=== PATIENT | female | born 1985 | race Caucasian/White ===

== ENCOUNTER 2016-05-27 09:02 | Emergency (ER) | payer OTHER ==
--- NOTE | 2016-05-27 11:21 | ED ORDER SUMMARY ---
..... Patient: PEÑA SCHROEDER OrderSheet [facility] VisitID: [id number] [place] [address] 31y, F Registration Date/Time: 05/27/2016 ORDER SHEET Weight: 94.3 kg (stated) Allergies: Penicillin GENERAL ORDERS: US Pelvic Complete w Transvag Urgent (:05/27/[address]) (Ack 9:59 RKgricelda) (10:06 LWhalen R.N.) CBC w Diff Urgent (:05/27/[address]) (Ack 9:59 RKgricelda) (10:06 LWhalen R.N.) UA-Culture if indicated Urgent (05/27/[address]) (Ack 9:59 RKgricelda) (10:06 LWhalen R.N.) Urine Urgent (:05/27/[address]) (Ack 9:59 Xavier) (10:06 LWhalen R.N.) MEDICATION ORDERS: IV FLUIDS: IV NS : initial bolus 500 mL (1000 mL/hr), then 500 mL/hr for 2h (NOW); Routine (:43 05/27/[address]) (10:05 LWhalen R.N.) ORDER SHEET NOTES: [Electronically signed by Brett Loera MD (11:19 05/27/2016)] [Electronically signed by Susie Mcgregor R.N. (19:11 05/27/2016)] [Electronically locked/signed by Susie Mcgregor R.N. (19:11 05/27/2016)]
--- NOTE | 2016-05-27 11:21 | ED CLINICAL REPORT ---
Clinical Report - Physicians/Mid Levels [facility] [address] [place] [address] 05/27/2016 9:11 Patient: PEÑA SCHROEDER Time Seen: 09:36 May 27 2016. Arrived- By private vehicle. Historian- patient. CPT: ER phys charges level 4 (#[id number]). HISTORY OF PRESENT ILLNESS Chief Complaint: VAGINAL BLEEDING. 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 The symptoms are described as moderate. Modifying factors. Not worsened by anything. Not relieved by anything. The patient has had abnormal bleeding described as heavier than normal period 2 tampons per hour with clots. No control. She is not postmenopausal. No abdominal pain, pelvic pain, vaginal pain, vaginal discharge or pain with urination. No urinary frequency, urgency of urination or hematuria. Not sexually active. Does not use control measures. Denies current . Similar symptoms previously: Milder. Seen in the office. Diagnosis: (irregular menses.). Recent medical care: Not recently seen/assessed. REVIEW OF SYSTEMS No nausea, vomiting, diarrhea, sore throat or cough. No difficulty breathing, chest pain, skin rash, enlarged lymph nodes or joint pain. All systems otherwise negative, except as recorded above. PAST HISTORY ( Prior sexually transmitted disease history: herpes. No history of diabetes mellitus or hypertension. No history of pelvic inflammatory disease or endometriosis. ( no control +sexually active). ADDITIONAL SURGERIES: [place] teeth .). Medications: Ambien Oral. FLUoxetine HCl Oral. Allergies: Penicillin. SOCIAL HISTORY Light tobacco smoker (cigarette)- less than 1/2 a pack per day. Alcohol use. No drug use. ADDITIONAL NOTES The nursing notes have been reviewed. PHYSICAL EXAM Vital Signs: 05/27/2016 09:20 BP: 131/90. HR: 76. RR: 18. O2 saturation: 100%. Temp: 98.4 F. Appearance: Alert. HEENT: Normal external inspection. Eyes: No pale conjunctivae. ENT: Pharynx normal. Neck: Neck supple. CVS: Heart sounds normal. There is no decreased capillary refill. Respiratory: No respiratory distress. Breath sounds normal. Abdomen: Soft and nontender. Bowel sounds normal. : External inspection normal. Slight vaginal bleeding, consisting of bright red blood, and dark blood, via the cervical os. No clots associated with vaginal bleeding. No vaginal bleeding from a cervical lesion or vaginal laceration. No vaginal discharge. Bimanual exam normal. Skin: Skin warm. Normal skin color. No rash. Extremities: Extremities nontender. Neuro: Oriented X 3. Mood/affect normal. LABS, X-RAYS, AND EKG Pelvic Sonogram: Mild endometrial wall thickening is present (16.5 mm). No intrauterine , free fluid, adnexal mass or ovarian cyst. Study type: bedside abdominal and transvaginal evaluation. The study was independently viewed by me and interpreted contemporaneously by me. Laboratory Tests: UA-Culture if indicated: (ANJANA: 05/27/2016 09:47) ( MsgRcvd 05/27/2016 10:01) Final results Test Result Flag Units (Reference) URINE COLOR YELLOW URINE APPEARANCE SL CLOUDY URINE GLUCOSE NEGATIVE (NEGATIVE) URINE BILIRUBIN NEGATIVE (NEGATIVE) URINE KETONE NEGATIVE (NEGATIVE) URINE SPECIFIC GRAVITY 1.015 (1.010-1.030) URINE PH 6.0 (5.0-8.0) URINE PROTEIN NEGATIVE (NEGATIVE) URINE UROBILINOGEN 0.2 EU/dL (0.2-1.0) URINE NITRITE NEGATIVE (NEGATIVE) URINE BLOOD 3+ (NEGATIVE) URINE LEUK ESTERASE NEGATIVE (NEGATIVE) URINE RBC 50-75 rbc/hpf (0-1) URINE WBC NONE SEEN wbc/hpf (0-1) URINE EPITHELIAL CELLS 0-1 EPI/hpf (0-5) URINE BACTERIA TRACE (<1+) (NONE SEEN) URINE COMMENT CULT NOT INDICATED URINE CULTURES ARE SET-UP BASED ON THE FOLLOWING CRITERIA:POSITIVE NITRITEPOSITIVE LEUKOCYTE ESTERASEGREATER THAN 10 WHITE BLOOD CELLSMODERATE (2+) OR GREATER BACTERIA Urine: (ANJANA: 05/27/2016 09:47) ( PrgRcvd 05/27/2016 09:55) Final results Test Result Flag Units (Reference) URINE NEGATIVE CBC w Diff: (ANJANA: 05/27/2016 09:50) ( [facility] 05/27/2016 10:06) Final results Test Result Flag Units (Reference) WHITE BLOOD COUNT 8.3 K/uL (4.5-11.5) RED BLOOD COUNT 4.40 M/uL (4.00-5.20) HEMOGLOBIN 11.8 L gm/dL (12.0-16.0) HEMATOCRIT 35.3 L % (36.0-46.0) MEAN CELL VOLUME 80 fL (80-100) MEAN CORPUSCULAR HGB 27 pg (26-34) MEAN CORPUSCULAR HGB CONC 33 g/dL (31-37) RED CELL DISTRIBUTION WIDTH 14.4 % (11.6-14.8) PLATELET COUNT 248 K/uL (150-400) NEUTROPHIL % 72.6 % (50-75) LYMPH % 18.6 L % (25-40) MONO % 7.5 % (3-14) EOSINOPHIL % 0.7 % (0-4) BASOPHIL % 0.6 % (0-2) . PROGRESS AND PROCEDURES Course of Care: IV NS the patient already has follow-up with gynecology scheduled via her PCP. Patient/family counseled. Disposition: Discharged. Condition: stable. CLINICAL IMPRESSION Moderate pre-menopausal dysfunctional uterine bleeding. INSTRUCTIONS No sexual contact until symptoms resolve. Warnings: Further evaluation is necessary. GENERAL WARNINGS: Return or contact your physician immediately if your condition worsens or changes unexpectedly, if not improving as expected, or if other problems arise. Your Current Medications: CONTINUE TAKING THE FOLLOWING MEDICATIONS: Ambien Oral. FLUoxetine HCl Oral. Prescription Medications: Ovcon 35 take 2 pills a day for 5 days # 1 pack. 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 Call for an appointment. Understanding of the discharge instructions verbalized by patient. (Electronically signed by Brett Loera MD 05/27/2016 11:19)
--- NOTE | 2016-05-27 11:21 | ED CLINICAL REPORT ---
Clinical Report - Physicians/Mid Levels [facility] [address] [place] [address] 05/27/2016 9:11 Patient: PEÑA SCHROEDER Time Seen: 09:36 May 27 2016. Arrived- By private vehicle. Historian- patient. CPT: ER phys charges level 4 (#[id number]). HISTORY OF PRESENT ILLNESS Chief Complaint: VAGINAL BLEEDING. 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 The symptoms are described as moderate. Modifying factors. Not worsened by anything. Not relieved by anything. The patient has had abnormal bleeding described as heavier than normal period 2 tampons per hour with clots. No control. She is not postmenopausal. No abdominal pain, pelvic pain, vaginal pain, vaginal discharge or pain with urination. No urinary frequency, urgency of urination or hematuria. Not sexually active. Does not use control measures. Denies current . Similar symptoms previously: Milder. Seen in the office. Diagnosis: (irregular menses.). Recent medical care: Not recently seen/assessed. REVIEW OF SYSTEMS No nausea, vomiting, diarrhea, sore throat or cough. No difficulty breathing, chest pain, skin rash, enlarged lymph nodes or joint pain. All systems otherwise negative, except as recorded above. PAST HISTORY ( Prior sexually transmitted disease history: herpes. No history of diabetes mellitus or hypertension. No history of pelvic inflammatory disease or endometriosis. ( no control +sexually active). ADDITIONAL SURGERIES: [place] teeth .). Medications: Ambien Oral. FLUoxetine HCl Oral. Allergies: Penicillin. SOCIAL HISTORY Light tobacco smoker (cigarette)- less than 1/2 a pack per day. Alcohol use. No drug use. ADDITIONAL NOTES The nursing notes have been reviewed. PHYSICAL EXAM Vital Signs: 05/27/2016 09:20 BP: 131/90. HR: 76. RR: 18. O2 saturation: 100%. Temp: 98.4 F. Appearance: Alert. HEENT: Normal external inspection. Eyes: No pale conjunctivae. ENT: Pharynx normal. Neck: Neck supple. CVS: Heart sounds normal. There is no decreased capillary refill. Respiratory: No respiratory distress. Breath sounds normal. Abdomen: Soft and nontender. Bowel sounds normal. : External inspection normal. Slight vaginal bleeding, consisting of bright red blood, and dark blood, via the cervical os. No clots associated with vaginal bleeding. No vaginal bleeding from a cervical lesion or vaginal laceration. No vaginal discharge. Bimanual exam normal. Skin: Skin warm. Normal skin color. No rash. Extremities: Extremities nontender. Neuro: Oriented X 3. Mood/affect normal. LABS, X-RAYS, AND EKG Pelvic Sonogram: Mild endometrial wall thickening is present (16.5 mm). No intrauterine , free fluid, adnexal mass or ovarian cyst. Study type: bedside abdominal and transvaginal evaluation. The study was independently viewed by me and interpreted contemporaneously by me. Laboratory Tests: UA-Culture if indicated: (ANJANA: 05/27/2016 09:47) ( MsgRcvd 05/27/2016 10:01) Final results Test Result Flag Units (Reference) URINE COLOR YELLOW URINE APPEARANCE SL CLOUDY URINE GLUCOSE NEGATIVE (NEGATIVE) URINE BILIRUBIN NEGATIVE (NEGATIVE) URINE KETONE NEGATIVE (NEGATIVE) URINE SPECIFIC GRAVITY 1.015 (1.010-1.030) URINE PH 6.0 (5.0-8.0) URINE PROTEIN NEGATIVE (NEGATIVE) URINE UROBILINOGEN 0.2 EU/dL (0.2-1.0) URINE NITRITE NEGATIVE (NEGATIVE) URINE BLOOD 3+ (NEGATIVE) URINE LEUK ESTERASE NEGATIVE (NEGATIVE) URINE RBC 50-75 rbc/hpf (0-1) URINE WBC NONE SEEN wbc/hpf (0-1) URINE EPITHELIAL CELLS 0-1 EPI/hpf (0-5) URINE BACTERIA TRACE (<1+) (NONE SEEN) URINE COMMENT CULT NOT INDICATED URINE CULTURES ARE SET-UP BASED ON THE FOLLOWING CRITERIA:POSITIVE NITRITEPOSITIVE LEUKOCYTE ESTERASEGREATER THAN 10 WHITE BLOOD CELLSMODERATE (2+) OR GREATER BACTERIA Urine: (ANJANA: 05/27/2016 09:47) ( KsgRcvd 05/27/2016 09:55) Final results Test Result Flag Units (Reference) URINE NEGATIVE CBC w Diff: (ANJANA: 05/27/2016 09:50) ( [facility] 05/27/2016 10:06) Final results Test Result Flag Units (Reference) WHITE BLOOD COUNT 8.3 K/uL (4.5-11.5) RED BLOOD COUNT 4.40 M/uL (4.00-5.20) HEMOGLOBIN 11.8 L gm/dL (12.0-16.0) HEMATOCRIT 35.3 L % (36.0-46.0) MEAN CELL VOLUME 80 fL (80-100) MEAN CORPUSCULAR HGB 27 pg (26-34) MEAN CORPUSCULAR HGB CONC 33 g/dL (31-37) RED CELL DISTRIBUTION WIDTH 14.4 % (11.6-14.8) PLATELET COUNT 248 K/uL (150-400) NEUTROPHIL % 72.6 % (50-75) LYMPH % 18.6 L % (25-40) MONO % 7.5 % (3-14) EOSINOPHIL % 0.7 % (0-4) BASOPHIL % 0.6 % (0-2) . PROGRESS AND PROCEDURES Course of Care: IV NS the patient already has follow-up with gynecology scheduled via her PCP. Patient/family counseled. Disposition: Discharged. Condition: stable. CLINICAL IMPRESSION Moderate pre-menopausal dysfunctional uterine bleeding. INSTRUCTIONS No sexual contact until symptoms resolve. Warnings: Further evaluation is necessary. GENERAL WARNINGS: Return or contact your physician immediately if your condition worsens or changes unexpectedly, if not improving as expected, or if other problems arise. Your Current Medications: CONTINUE TAKING THE FOLLOWING MEDICATIONS: Ambien Oral. FLUoxetine HCl Oral. Prescription Medications: Ovcon 35 take 2 pills a day for 5 days # 1 pack. 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 Call for an appointment. Understanding of the discharge instructions verbalized by patient. (Electronically signed by Brett Loera MD 05/27/2016 11:19)
--- NOTE | 2016-05-27 11:21 | ED ORDER SUMMARY ---
..... Patient: PEÑA SCHROEDER OrderSheet [facility] VisitID: [id number] [place] [address] 31y, F Registration Date/Time: 05/27/2016 ORDER SHEET Weight: 94.3 kg (stated) Allergies: Penicillin GENERAL ORDERS: US Pelvic Complete w Transvag Urgent (:05/27/[address]) (Ack 9:59 RKgricelda) (10:06 LWhalen R.N.) CBC w Diff Urgent (:05/27/[address]) (Ack 9:59 RKgricelda) (10:06 LWhalen R.N.) UA-Culture if indicated Urgent (05/27/[address]) (Ack 9:59 RKgricelda) (10:06 LWhalen R.N.) Urine Urgent (:05/27/[address]) (Ack 9:59 Xavier) (10:06 LWhalen R.N.) MEDICATION ORDERS: IV FLUIDS: IV NS : initial bolus 500 mL (1000 mL/hr), then 500 mL/hr for 2h (NOW); Routine (:43 05/27/[address]) (10:05 LWhalen R.N.) ORDER SHEET NOTES: [Electronically signed by Brett Loera MD (11:19 05/27/2016)] [Electronically signed by Susie Mcgregor R.N. (19:11 05/27/2016)] [Electronically locked/signed by Susie Mcgregor R.N. (19:11 05/27/2016)]
--- NOTE | 2016-05-27 11:21 | ED NURSING NOTES ---
Clinical Report - Nurses [facility] [address] [place] [address] 05/27/2016 9:11 [id number] Triage time 09:20 May 27 2016. Acuity: LEVEL 3. Chief Complaint: VAGINAL BLEED. EZEQUIEL COMA SCORE: [place] Coma Scale: 15- eyes open spontaneously (4); best verbal response- oriented x 4 (5); best motor response- obeys commands (6). --09:29 Susie Mcgregor R.N. 09:20 05/27/16. BP: 131/90. HR: 76. RR: 18. O2 saturation: 100%. Temp: 98.4 F. Pain level now 0/10. --09:29 Susie Mcgregor R.N. Weight: 94.3 kg stated. Height/Length: 67 inches Per Patient. BMI: 32.6. --09:27 Susie Mcgregor R.N. Medications FLUoxetine HCl Oral. --09:23 Susie Mcgregor R.N. Ambien Oral. --09:23 Susie Mcgregor R.N. Allergies Penicillin. --09:24 Susie Mcgregor R.N. History Historian: patient. ( Apr 27 has had bleeding on and off with heaviness +clots, was seen by Dr. Jelani Castellanos and was supposed to have an ultrasound on Monday and follow up with GI but pt's bleeding has increased and patient is feeling dizzy and lightheaded.). She has had abnormal bleeding described as passing clots (Has had to change two tampons in an hour and has a heavy pad on.). No abdominal pain, hematuria, flank pain or fever. PAST MEDICAL HX: Prior sexually transmitted disease history: herpes. No history of diabetes mellitus or hypertension. No history of pelvic inflammatory disease or endometriosis. ( no control +sexually active). SOCIAL HX: Smoker- current status unknown. Occasional alcohol use; consumes two beers. No drug use. SELF HARM ASSESSMENT: A self harm assessment was performed. The patient answered "yes" to the question "Have you recently felt down, depressed, or hopeless?" and "no" to the question "Do you have thoughts of harming or killing yourself?". FALL RISK ASSESSMENT: Fall risk assessment completed. No fall risk identified. NUTRITIONAL RISK ASSESSMENT: The nutritional risk assessment revealed no deficiencies. FUNCTIONAL ASSESSMENT: Functional assessment: no impairments noted. LEARNING NEEDS ASSESSMENT: The learning needs assessment revealed no barriers. ABUSE ASSESSMENT: Abuse assessment: (yes) The patient was asked "Do you feel safe in your home?". SKIN INTEGRITY ASSESSMENT: Skin integrity risk assessment completed. No skin integrity risk identified. --:29 Susie Mcgregor R.N. ADDITIONAL SURGERIES: [place] teeth . --09:24 Susie Mcgregor R.N. Interventions ID band on patient. --: Susie Mcgregor R.N. PHYSICAL ASSESSMENT Ambulatory to room. GENERAL / NEURO / PSYCH: Alert. Oriented X 4. Appears in no acute distress. HEENT: Mucous membranes are pink. RESPIRATORY: Respirations not labored. CVS: Normal heart rate and rhythm. Capillary refill less than 2 seconds. GI / : Abdomen soft and nontender. Bowel sounds within normal limits. Moderate vaginal bleeding present with clots .1 pad per hour. ( Last BM last night). SKIN: Skin is warm and dry. --:29 Susie Mcgregor R.N. NURSING PROGRESS NOTES The plan of care for this patient has been created. Patient gowned. Head of bed elevated (45). Reassurance given. Call light placed in reach. Side rails up x 1. Bed placed in lowest position. Brakes of bed on. --09:30 Susie Mcgregor R.N. 10:05 05/27/2016 Site #1 started via IV in the right hand with an 20g angiocath, with aseptic technique and good blood return; one attempt. Blood drawn: rainbow set. Labeled in the presence of the patient and sent to the lab. Saline lock flushed with 10 mL saline. --10:05 Susie Mcgregor R.N. 10:05 05/27/2016 Started bag #1 1000 mL IV Fluids IV NS (Saline); at 1000 mL/hr over 0.5 hour(s) via site #1 via IV pump. Allergies verified and confirmed 5 rights. IV patency established. IV site checked: no pain, redness, or swelling. IV flushed thoroughly pre- and post-medication administration. --10:05 Susie Mcgregor R.N. 11:02 05/27/2016 IV Fluids IV NS Discontinued: bag #1 infused upon discharge. Total amount infused: 950 mL. IV patency established. IV site checked: no pain, redness, or swelling. IV flushed thoroughly. --11:02 Susie Mcgregor R.N. DISPOSITION / DISCHARGE 11:18 05/27/2016 Site #1 removed upon discharge. Catheter intact. Pressure dressing applied. --11:18 Susie Mcgregor R.N. Departure time: 11:19 May 27 2016. Condition at departure: improved. No learning barriers present. Discharge instructions provided and reviewed with the patient and spouse. Reviewed warnings. Reviewed medication(s). Treatments reviewed. Reviewed referrals. Patient verbalized understanding. Written instructions provided in Faroese. The patient was discharged home and accompanied by spouse. She left the Emergency Department ambulatory and via private vehicle. Spouse driving. --11:19 Susie Mcgregor R.N. 11:18 05/27/16. BP: 133/80. HR: 86. RR: 18. O2 saturation: 99%. Temp: 98.3 F. Pain level now 0/10. --11:19 Susie Mcgregor R.N. Locked/Released at 05/27/2016 19:11 by Susie Mcgregor R.N.
--- NOTE | 2016-05-27 11:31 | DIAGNOSTIC IMAGING REPORT ---
PROCEDURE: US COMPLETE PELVIC W/TRANSVAG INDICATION: PELVIC PAIN TECHNIQUE: Transabdominal and endovaginal moralez scale and color Doppler sonographic images of the female pelvis were obtained. COMPARISON: None. FINDINGS: TRANSABDOMINAL SCANS: The uterus is of normal size 9.9 x 4.16 x 1 cm Kidneys are normal. TRANSVAGINAL SCANS: The uterus is anteverted. Myometrium is normal. The endometrium is vascular and at the upper limits of normal in thickness measuring 16.5 mm. Right ovary is normal measuring 4.6 x 2.7 x 3.6 cm The left ovary is normal measuring 3.3 x 2.2 x 3.1 cm IMPRESSION: 1. Vascular endometrium at the upper limits of normal in thickness.
--- NOTE | 2016-05-27 19:11 | ED MAR SUMMARY ---
..... Medication Administration Record [facility] [address] [place] [address] Patient: PEÑA SCHROEDER Visit ID: [id number] 31y, F Weight: 94.3 kg Height/Length: 67 in BMI: 32.6 ALLERGIES: Penicillin Start 10:05 05/27/2016 Susie Mcgregor RMannieN., Stop 11:02 05/27/2016 Susie Mcgregor RMannieN. Medication Administered: IV NS (SALINE), Dose: IV Fluids over 0.5 hour(s), Rate: 1000 mL/hr, Dispensed: 1000 mL bag, Site: #1 right hand. Medication Ordered: IV NS : initial bolus 500 mL (1000 mL/hr), then 500 mL/hr for 2h (NOW); Routine.
--- NOTE | 2016-05-27 19:11 | ED DISCHARGE INSTRUCTIONS ---
Patient: PEÑA SCHROEDER General Instructions [facility] VisitID: [id number] [place] [address] 31y, F Registration Date/Time: 05/27/2016 Moderate pre-menopausal dysfunctional uterine bleeding. INSTRUCTIONS No sexual contact until symptoms resolve. Warnings: Further evaluation is necessary. GENERAL WARNINGS: Return or contact your physician immediately if your condition worsens or changes unexpectedly, if not improving as expected, or if other problems arise. Your Current Medications: CONTINUE TAKING THE FOLLOWING MEDICATIONS: Ambien Oral. FLUoxetine HCl Oral. Prescription Medications: Ovcon 35 take 2 pills a day for 5 days # 1 pack. 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 Call for an appointment. Understanding of the discharge instructions verbalized by patient. ADDITIONAL INFORMATION Irregular Vaginal Bleeding This is a condition in which bleeding occurs at unexpected times of the month. The bleeding may be heavier or regulator tester than usual. Heavy bleeding may lead to anemia. If severe enough, anemia may cause you to look pale and feel weak or fatigued. You might have shortness of breath even with little exertion. The female hormones produced in your body every month may be out of balance. This imbalance leads to bleeding. Causes could include an ovarian cyst, emotional stress, pelvic infection. Failure to ovulate during your last cycle may also cause this problem. Home Care: If bleeding is heavy, rest and avoid heavy exertion. You may use acetaminophen (Tylenol) or ibuprofen (Motrin, Advil) to control pain, unless another pain medicine was prescribed. [NOTE: If you have chronic liver or kidney disease or ever had a stomach ulcer or GI bleeding, talk with your doctor before using these medicines.] Iron supplements may be prescribed for anemia. It takes about 4-6 weeks for the iron to correct the anemia. Take the medicine as directed. See your doctor for a repeat blood test after you finish the iron treatment. If hormones were prescribed to control your bleeding, take them exactly as directed. If you were prescribed a medicine called Provera (medroxyprogesterone), the bleeding should stop while you are taking it. Another period will start a few days after you finish the medicine. Follow Up with your doctor, or as advised, within the next 1-2 days if heavy bleeding continues. Otherwise, follow up within the next 1-2 weeks. Get Prompt Medical Attention if any of the following occur: Bleeding becomes heavy (soaking one pad an hour for three hours) Fever of 100.4F (38C) or higher, or as directed by your healthcare provider Increase in abdominal pain Weakness, dizziness or fainting You have been given the following additional information: Dysfunctional Uterine Bleeding (Electronically signed by Brett Loera MD 05/27/2016 11:19)
--- NOTE | 2016-05-27 19:11 | ED MAR SUMMARY ---
..... Medication Administration Record [facility] [address] [place] [address] Patient: PEÑA SCHROEDER Visit ID: [id number] 31y, F Weight: 94.3 kg Height/Length: 67 in BMI: 32.6 ALLERGIES: Penicillin Start 10:05 05/27/2016 Susie Mcgregor RMannieN., Stop 11:02 05/27/2016 Susie Mcgregor RMannieN. Medication Administered: IV NS (SALINE), Dose: IV Fluids over 0.5 hour(s), Rate: 1000 mL/hr, Dispensed: 1000 mL bag, Site: #1 right hand. Medication Ordered: IV NS : initial bolus 500 mL (1000 mL/hr), then 500 mL/hr for 2h (NOW); Routine.
--- NOTE | 2016-05-27 19:11 | ED MED RECONCILIATION SUMMARY ---
Patient: PEÑA SCHROEDER Medication Reconciliation Report [facility] VisitID: [id number] [address] [place] [address] 31y, F Registration Date/Time: 05/27/2016 Weight: 94.3 kg Height/Length: 67 in. BMI: 32.6 ALLERGIES: Penicillin The patient's Home Medications are listed below: CONTINUE TAKING THE FOLLOWING MEDICATIONS: Ambien Oral FLUoxetine HCl Oral The source(s) of the original Home Medication information: Not obtained. The following Medications were given to the patient in the Emergency Department: IV NS IV Fluids bolus 0, then 1000 mL/hr, administered: 05/27/2016 10:05:00 AM The following Medications were prescribed to the patient: Ovcon 35 take 2 pills a day for 5 days # 1 pack. -- Brett Loera MD
--- NOTE | 2016-05-27 19:11 | ED DISCHARGE INSTRUCTIONS ---
Patient: PEÑA SCHROEDER General Instructions [facility] VisitID: [id number] [place] [address] 31y, F Registration Date/Time: 05/27/2016 Moderate pre-menopausal dysfunctional uterine bleeding. INSTRUCTIONS No sexual contact until symptoms resolve. Warnings: Further evaluation is necessary. GENERAL WARNINGS: Return or contact your physician immediately if your condition worsens or changes unexpectedly, if not improving as expected, or if other problems arise. Your Current Medications: CONTINUE TAKING THE FOLLOWING MEDICATIONS: Ambien Oral. FLUoxetine HCl Oral. Prescription Medications: Ovcon 35 take 2 pills a day for 5 days # 1 pack. Follow-up: Follow up with a christmas bell ringer in two weeks. Call for an appointment. Understanding of the discharge instructions verbalized by patient. ADDITIONAL INFORMATION Irregular Vaginal Bleeding This is a condition in which bleeding occurs at unexpected times of the month. The bleeding may be heavier or community health program coordinator than usual. Heavy bleeding may lead to anemia. If severe enough, anemia may cause you to look pale and feel weak or fatigued. You might have shortness of breath even with little exertion. The female hormones produced in your body every month may be out of balance. This imbalance leads to bleeding. Causes could include an ovarian cyst, emotional stress, pelvic infection. Failure to ovulate during your last cycle may also cause this problem. Home Care: If bleeding is heavy, rest and avoid heavy exertion. You may use acetaminophen (Tylenol) or ibuprofen (Motrin, Advil) to control pain, unless another pain medicine was prescribed. [NOTE: If you have chronic liver or kidney disease or ever had a stomach ulcer or GI bleeding, talk with your doctor before using these medicines.] Iron supplements may be prescribed for anemia. It takes about 4-6 weeks for the iron to correct the anemia. Take the medicine as directed. See your doctor for a repeat blood test after you finish the iron treatment. If hormones were prescribed to control your bleeding, take them exactly as directed. If you were prescribed a medicine called Provera (medroxyprogesterone), the bleeding should stop while you are taking it. Another period will start a few days after you finish the medicine. Follow Up with your doctor, or as advised, within the next 1-2 days if heavy bleeding continues. Otherwise, follow up within the next 1-2 weeks. Get Prompt Medical Attention if any of the following occur: Bleeding becomes heavy (soaking one pad an hour for three hours) Fever of 100.4F (38C) or higher, or as directed by your healthcare provider Increase in abdominal pain Weakness, dizziness or fainting You have been given the following additional information: Dysfunctional Uterine Bleeding (Electronically signed by Brett Loera MD 05/27/2016 11:19)
--- NOTE | 2016-05-27 19:11 | ED MED RECONCILIATION SUMMARY ---
Patient: PEÑA SCHROEDER Medication Reconciliation Report [facility] VisitID: [id number] [address] [place] [address] 31y, F Registration Date/Time: 05/27/2016 Weight: 94.3 kg Height/Length: 67 in. BMI: 32.6 ALLERGIES: Penicillin The patient's Home Medications are listed below: CONTINUE TAKING THE FOLLOWING MEDICATIONS: Ambien Oral FLUoxetine HCl Oral The source(s) of the original Home Medication information: Not obtained. The following Medications were given to the patient in the Emergency Department: IV NS IV Fluids bolus 0, then 1000 mL/hr, administered: 05/27/2016 10:05:00 AM The following Medications were prescribed to the patient: Ovcon 35 take 2 pills a day for 5 days # 1 pack. -- Brett Loera MD
== END 2016-05-27 11:15 | disposition home or self-care (01) ==
LOC: ED SRH 09:02
DX: N93.8 Other specified abnormal uterine and vaginal bleeding (principal); N92.4 Excessive bleeding in the premenopausal period; F17.210 Nicotine dependence, cigarettes, uncomplicated; Z88.0 Allergy status to penicillin
CPT/HCPCS: 90004; 93070; 95059